=== PATIENT | male | born 1935 | race Caucasian/White ===

== ENCOUNTER 2017-03-24 09:23 | Inpatient (IN) | payer MEDICARE, OTHER ==
[~2017-03-24] VITALS: Ht 180.3 cm; Wt 85.7 kg
[~2017-03-24 09:23] MED LIST: CEFTIN250 MG PO; CIPRO500 MG OR; CIPROFLOXACIN250 MG OR; DARVOCET-N 100100 MG OR; FLULAVAL IM; LYRICA50 MG PO
[2017-03-24] MEDS ORDERED: NAMENDA10 MG PO (09:36)
--- NOTE | 2017-03-24 09:36 | NUR ---
PT BROUGHT IN FROM TRUCK IN DRIVEWAY PER W/C TO ROOM
--- NOTE | 2017-03-24 09:45 | NUR ---
PT REPORTS LEFT HIP PAIN AFTER TRIP AND FALL LUMBER STICKER. PT HAS DECREASE ROM TO LLE. BILATERAL PEDAL PULSE EQUAL AND STRONG. PT UNABLE TO FLEX LEFT LE, NO SHORTENING NOTED. DENIES ANY LOC, HEAD OR NECK PAIN. A&O X 3. PT AWARE OF PLAN OF CARE AND WAIT TIME. CALL CORONADO WITHIN REACH, WILL CONTINUE TO MONITOR.
[2017-03-24 09:54] LABS: HEMATOCRIT 44.4 % (39.0-50.0); HEMOGLOBIN 15.3 g/dl (14.0-18.0); IMMATURE GRANULOCYTES 0.5 % (0.0-1.0); MEAN CELL VOLUME 89.7 fL CALC (80.0-100.0); MEAN CORPUSCULAR HGB 30.9 pG CALC (26.0-32.0); MEAN CORPUSCULAR HGB CONC 34.5 g/L CALC (32.0-36.0); NEUT# 2.74 thou/uL (1.82-7.42); RED BLOOD COUNT 4.95 mill/uL (4.70-6.10); RED CELL DISTRI WIDTH 12.3 % (11.5-15.5)
--- NOTE | 2017-03-24 10:00 | NUR ---
PT PLACED ON 2 L NC FOR 89% SAO2 SAT. PT REPORTS O2 SAT IS NORMALLY LOW, NO 02 AT HOME.
[2017-03-24 10:03] LABS: ALBUMIN 4.1 g/dL (3.2-5.0); ALKALINE PHOSPHATASE 122 u/l (38-126); ANION GAP 16 (6-22 (CALC)); BILIRUBIN, TOTAL 0.6 mg/dL (0.0-1.4); BUN 10 mg/dL (8-23); BUN/CREATININE RATIO 14 (12-20 (CALC)); CALCIUM 9.7 mg/dL (8.4-10.2); CARBON DIOXIDE 25 mmol/l (22-30); CHLORIDE 105 mmol/l (95-108); CREATININE 0.7 mg/dL (0.7-1.3); GFR > 60 ML/MIN (>=60 (CALC)); GFR FOR AFR.AMER. > 60 ML/MIN (>=60 (CALC)); GLUCOSE 157 mg/dL (82-115); POTASSIUM 4.3 mmol/l (3.5-5.1); SGOT/AST 32 u/l (19-48); SGPT/ALT 37 u/l (11-66); SODIUM 141 mmol/l (137-146); TOTAL PROTEIN 6.7 g/dL (6.3-8.2)
--- NOTE | 2017-03-24 10:30 | NUR ---
MD AT BEDSIDE TO DISCUSS RESUTLS AND PLAN OF ADMISSION.
--- NOTE | 2017-03-24 10:56 | NUR ---
REPORT CALLED TO SUSANA SANON.
--- NOTE | 2017-03-24 11:05 | NUR ---
Admission Note Report Given to: SBAR PRINTED TO FLOOR Transported by: Wheelchair X Stretcher Transported with: X Nurse Transporter X Patent IV O2 X Pbx Repairer
[2017-03-24 11:10] VITALS: BP 153/73
--- NOTE | 2017-03-24 11:10 | NUR ---
PT ADMITTED TO ICU BED 8 MED SURG OVERFLOW, PT MOD ASSIST TRANSFER, PREFERRED TO MOVE HIMSELF WITH OUR ASSIST RELATED TO PAIN, TOLERATED MOVE WELL, ADMITTING DX LEFT HIP FX, ADMISSION ASSESSMENT COMPLETED SEE INTERVENTIONS, SKIN WARM DRY AND INTACT LEFT LEFG EXTERNALLY ROTATED AND SLIGHTLY SHORTER THAN R, PPPB AND STRONG WITH NO EDEMA NOTED, TOES WARM WITH GOOD CAP REFILL BILATERALLY, LUNGS ARE CLEAR PT HAS HISTORY OF COPD STATES A PULSE OX OF 90-93% ON ROOM AIR IS HIS "NORM", DENIES WEARING O2 AT HOME, ABD SOFT BS ACTIVE, COMPLAINS OF MILD NAUSEA NOW RELATED TO PAIN AND MEDICATION ADMINISTERED, LAST BM 03/23/17 PER PT, ORIENTED TO ROOM AND UNIT, COMFORT MEASURES PROVIDED, CALL CORONADO WITHIN REACH
--- NOTE | 2017-03-24 11:30 | NUR ---
AT BEDSIDE, DISCUSSED PLAN OF CARE INCLUDING POTENTIAL SURGERY PAIN CONTROL, DIET AND MEDICATIONS, ALL QUESTIONS ANSWERED, CALL CORONADO WITHIN REACH
--- NOTE | 2017-03-24 12:08 | NUR ---
MEDICATED FOR PAIN AND NAUSEA, SET UP ASSIST PROVIDED FOR AFTERNOON MEAL, CALL CORONADO WITHIN REACH, WILL CONTINUE TO MONITOR.
--- NOTE | 2017-03-24 13:00 | NUR ---
TOLERATED AFTERNOON MEAL WELL, STATES PAIN AND NAUSEA CONTROLLED AT THIS TIME, REPOSITIONS SELF FOR COMFORT. WILL CONTINUE TO MONITOR.
--- NOTE | 2017-03-24 13:57 | NUR ---
R.T. AT BEDSIDE FOR EKG AND ABG ORDERED, PT TOLERATED W/O INCIDENT, CALL CORONADO WITHIN REACH
--- NOTE | 2017-03-24 14:06 | NUR ---
O2 PLACED AT 2L VIA NC, BASED ON ABG RESULTS.
--- NOTE | 2017-03-24 14:55 | NUR ---
RESTING INBED, CALL IVONNE GOLDEN, OFFERS NO NEW COMPLAINTS,
--- NOTE | 2017-03-24 15:18 | NUR ---
PT MEDICATED FRO COMPLAINTS OF PAIN, PER PT IT'S NOT HOORIBLE YET BUT I WANTED TO TAKE SOMETHING BEFORE IT IS, COMFORT MEASURES PROVIDED, WILL CONTINUE TO MONITOR.
[2017-03-24 16:00] VITALS: BP 107/63
--- NOTE | 2017-03-24 17:29 | NUR ---
SET UP ASSIST PROVIDED FOR PM MEAL, BLANKET PROVIDED REQUESTED, PT REPOSITIONED SELF FOR COMFORT, CALL CORONADO WITHIN REACH
--- NOTE | 2017-03-24 17:42 | NUR ---
IN TO SEE PATIENT AT THIS TIME.
[2017-03-24 19:00] VITALS: BP 117/62
--- NOTE | 2017-03-24 19:00 | NUR ---
awake. denies acute hip pain. o2 cont per nc. lt foot outwardly rotated. po fluids taken well. voids per urinal. fall precautions cont.
--- NOTE | 2017-03-24 19:43 | NUR ---
percocet 5/325mg po given per request for pain.
--- NOTE | 2017-03-24 20:30 | NUR ---
no further c/oain voiced.
--- NOTE | 2017-03-24 23:30 | NUR ---
c/o lt hip pain. percocet 5/325mg po given.
[2017-03-25] VITALS (9 sets, daily range): BP systolic 96–136; BP diastolic 55–78
--- NOTE | 2017-03-25 00:01 | NUR ---
no further c/o voiced.
--- NOTE | 2017-03-25 03:00 | NUR ---
awake. denies pain. has voided lg amts this shift.
--- NOTE | 2017-03-25 04:00 | NUR ---
lab here. blood drawn.
[2017-03-25 04:30] LABS: HEMATOCRIT 38.3 % (39.0-50.0); HEMOGLOBIN 13.4 g/dl (14.0-18.0); IMMATURE GRANULOCYTES 0.4 % (0.0-1.0); MEAN CELL VOLUME 88.9 fL CALC (80.0-100.0); MEAN CORPUSCULAR HGB 31.1 pG CALC (26.0-32.0); NEUT# 4.31 thou/uL (1.82-7.42); RED BLOOD COUNT 4.31 mill/uL (4.70-6.10); RED CELL DISTRI WIDTH 11.9 % (11.5-15.5)
--- NOTE | 2017-03-25 04:30 | NUR ---
rt here. ekg obtained.
[2017-03-25 04:42] LABS: ALBUMIN 3.3 g/dL (3.2-5.0); ALKALINE PHOSPHATASE 93 u/l (38-126); ANION GAP 13 (6-22 (CALC)); BILIRUBIN, TOTAL 0.6 mg/dL (0.0-1.4); BUN 10 mg/dL (8-23); BUN/CREATININE RATIO 13 (12-20 (CALC)); CALCIUM 9.2 mg/dL (8.4-10.2); CARBON DIOXIDE 27 mmol/l (22-30); CHLORIDE 103 mmol/l (95-108); CREATININE 0.8 mg/dL (0.7-1.3); GFR > 60 ML/MIN (>=60 (CALC)); GFR FOR AFR.AMER. > 60 ML/MIN (>=60 (CALC)); GLUCOSE 160 mg/dL (82-115); POTASSIUM 4.1 mmol/l (3.5-5.1); SGOT/AST 21 u/l (19-48); SGPT/ALT 31 u/l (11-66); SODIUM 140 mmol/l (137-146); TOTAL PROTEIN 5.6 g/dL (6.3-8.2)
--- NOTE | 2017-03-25 06:15 | NUR ---
percocet 5/325mg po given for c/o pain.
--- NOTE | 2017-03-25 06:55 | NUR ---
BETO FROM OR DEPARTMENT ON PHONE AT THIS TIME. PER GRAZYNA BLANCO, PT WILL BE NPO AFTER BREAKFAST AND PROCEDURE WILL BE APPROXIMATELY 1800. BETO STATES "WE WILL MORE THAN LIKELY GET A VERBAL CONSENT FROM DR. TORRES" WILL UPDATE PT.
--- NOTE | 2017-03-25 12:30 | NUR ---
VISITOR AT BS. DENIES NEEDS OR CONCERNS. CALL LIGHT WITHIN REACH.
--- NOTE | 2017-03-25 17:05 | NUR ---
OR ON UNIT AT THIS TIME TO DIETARY SERVICE AIDE PT FOR PROCEDURE. PT STABLE AT TIME OF DEPARTURE.
--- NOTE | 2017-03-25 21:45 | NUR ---
PATIENT ARRIVED ON FLOOR VIA BED WITH OR STAFF IN ATTENDANCE. PATIENT IS AROUSABLE TO VOICE. O2 VIA NASAL CANNULA IN PLACE AT 2LPM. O2 SAT 94-95%. PATIENT WITH IV SITE TO LEFT AC-SITE APPEARS HEALTHY WITH IVF LR PATENT AND INFUSING AT 100CC/HR. PATIENT WITH DRESSING TO LEFT HIP CDI AT THIS TIME-ICE PACK IN PLACE AT THIS TIME FOR COMFORT. ABD PILLOW IN PLACE BETWEEN LEGS WITH SCD'S ORDERED. CALL LIGHT IN REACH. WILL CONT TO MONITOR.
--- NOTE | 2017-03-25 22:35 | NUR ---
PATIENT TAKING PO ICE CHIPS AND TOLERATING WELL. C/O POST-OP PAIN TO LEFT HIP. MEDICATED WITH DILAUDID 1MG IVP FOR 7/10 PAIN SCALE. CALL LIGHT IN REACH. WILL CONT TO MONITOR.
--- NOTE | 2017-03-26 00:30 | NUR ---
PATIENT IS RESTLESS AND ATTEMPTING TO REMOVE THE ABD PILLOW-ATTEMPTED TO EDUCATE PATIENT REGUARDING NEED TO LEAVE ABD PILLOW IN PLACE FOR PROPER HEALING-NOT ABLE TO EDUCATE AT THIS TIME. ABD REPLACED IN BETWEEN LEGS. CONT TO TAKE ICE CHIPS. O2 REMAINS IN PLACE. CLEOCIN INFUSING ORDERED. CALL LIGHT IN REACH. WILL CONT TO MONITOR.
--- NOTE | 2017-03-26 02:00 | NUR ---
PATIENT C/O POST-OP PAIN TO LEFT HIP-7/10 ON PAIN SCALE. MEDICATED WITH DILAUDID 1MG IVP FOR PAIN. CONT TO TAKE PO ICE CHIPS. ABD PILLOW BETWEEN LEGS. CALL LIGHT IN REACH. WILL CONT TO MONITOR.
[2017-03-26 05:17] VITALS: BP 101/62
[2017-03-26 06:37] LABS: HEMATOCRIT 35.6 % (39.0-50.0); HEMOGLOBIN 12.1 g/dl (14.0-18.0)
--- NOTE | 2017-03-26 06:41 | NUR ---
BLADDER SCAN FOR 856-#[address] [facility] BUNDY CATH INSERTED WITHOUT ANY DIFFICULTY-DRAINING KALYAN URINE. PATIENT MEDICATED WITH DILAUDID 1MG IVP FOR PAIN SCALE 7/10. IV SITE TO LEFT AC PATENT WITH LR AT 100CC/HR. SITE APPEARS HEALTHY. CONT TO TAKE ICE CHIPS AND H20 WITHOUT ANY DIFFICULTY, USING IS INSTRUCTED-TOLERATED WELL. ENCOURAGED USE QIH WHILE AWAKE. ABD PILLOW REMAINS IN PLACE. SAFETY PRECAUTIONS REINFORCED. CALL LIGHT IN REACH. WILL CONT TO MONITOR.
--- NOTE | 2017-03-26 07:00 | NUR ---
SHIFT CHANGE REPORT FROM CHARY LÓPEZ SLEEPING IN SUPINE POSITION, BREATHING EVEN AND NON-LABORED ON O2 @ 2L VIA NC, IVF INFUSING, ABDUCTOR WEDGE IN PLACE LEGS, SCD ON PLACE, CALL CORONADO IN REACH.
[2017-03-26 08:46] LABS: ANION GAP 12 (6-22 (CALC)); BUN 12 mg/dL (8-23); BUN/CREATININE RATIO 17 (12-20 (CALC)); CALCIUM 8.8 mg/dL (8.4-10.2); CARBON DIOXIDE 27 mmol/l (22-30); CHLORIDE 105 mmol/l (95-108); CREATININE 0.7 mg/dL (0.7-1.3); GFR > 60 ML/MIN (>=60 (CALC)); GFR FOR AFR.AMER. > 60 ML/MIN (>=60 (CALC)); GLUCOSE 158 mg/dL (82-115); POTASSIUM 4.4 mmol/l (3.5-5.1); SODIUM 140 mmol/l (137-146)
[2017-03-26 08:49] VITALS: BP 94/58
[2017-03-26 08:59] LABS: HEMATOCRIT 35.8 % (39.0-50.0); HEMOGLOBIN 12.1 g/dl (14.0-18.0); IMMATURE GRANULOCYTES 0.3 % (0.0-1.0); MEAN CELL VOLUME 90.2 fL CALC (80.0-100.0); MEAN CORPUSCULAR HGB 30.5 pG CALC (26.0-32.0); MEAN CORPUSCULAR HGB CONC 33.8 g/L CALC (32.0-36.0); NEUT# 5.69 thou/uL (1.82-7.42); RED BLOOD COUNT 3.97 mill/uL (4.70-6.10); RED CELL DISTRI WIDTH 12.2 % (11.5-15.5)
--- NOTE | 2017-03-26 10:45 | NUR ---
PHYSICAL THERAPISTS HERE AT THIS TIME TO EVAL AND TREAT PT, WILL CONTINUE TO MONITOR.
[2017-03-26 11:22] VITALS: BP 87/53
--- NOTE | 2017-03-26 13:51 | NUR ---
PM TX - PT WAS SEEN RESTING IN THE BED. BED MOBILITY WITH MODIFIED INDEPENDENCE. ABLE TO SCOOT AND SLIDE TO THE EDGE OF BED WHILE PULLING HIMSELF UP ON THE BED RAILS. HE WAS ABLE TO INDEPENDENTLY PUT HIS LEGS DOWN OFF THE BED TO ASSUME SHORT SITTING POSITION. VERBAL CUES WERE GIVEN ALTHROUGHOUT. SIT TO STAND WITH MIN A AND RW. PT'S LEGS WERE STILL IN CONSTANT FLEXED POSITION, BUT WOULD CORRECT IF GIVEN INSTRUCTIONS TO. VOICED SLIGHT DIZZINESS HE STARTED LEANING BACKWARD TOWARDS THE BED. INSTRUCTED THE PT TO SIDE STEP IN PREPARATION TO SIT AND LAY BACK IN THE BED. PT SIDE STEPPED W/ RW AND CGA WITH DIFFICULTY LIFTING FEET OFF THE FLOOR. ONCE SEATED ON THE BED, PT WAS ABLE LIFT HIS LEGS UP ON THE BED, USED B UE TO HOLD ONTO THE BED RAILS TO REPOSITION HIMSELF TO SUPINE. SPO2 DESATURATED TO 90% FROM 93% WITH O2 VIA NASAL CANNULA. INSTRUCTED PT TO DO DEEP BREATHS X 5. SPO2 RETURNED TO 96%. LEFT PT WITH CALL WITHIN REACH. FALL AND HIP PRECAUTIONS REINFORCED. FEET OFF THE FLOOR.
--- NOTE | 2017-03-26 14:42 | NUR ---
HAS NOT URINATED SINCE THIS AM, BLADDER SCANNED = 285 ML, MESSAGE LEFT FOR DR JAIME TO CALL BACK FOR ORDERS.
[2017-03-26 15:00] VITALS: BP 93/57
--- NOTE | 2017-03-26 15:03 | NUR ---
DR JAIME RETURNED CALL AND GAVE ORDERS.
[2017-03-26 17:54] LABS: URINE BILIRUBIN - DIPSTICK NEGATIVE (NEGATIVE); URINE BLOOD DIPSTICK TRACE-INTACT (NEGATIVE); URINE GLUCOSE - DIPSTICK NEGATIVE (NEGATIVE); URINE KETONE NEGATIVE (NEGATIVE); URINE LEUK ESTERASE NEGATIVE (NEGATIVE); URINE NITRITE - DIPSTICK NEGATIVE (Negative); URINE PROTEIN - DIPSTICK NEGATIVE (NEG-TRACE); URINE SPECIFIC GRAVITY >=1.030
[2017-03-26 17:55] LABS: URINE CLARITY CLEAR; URINE COLOR DK. YELLOW
[2017-03-26 18:45] VITALS: BP 99/53
--- NOTE | 2017-03-26 19:30 | NUR ---
PATIENT RESTING INBED AT THIS TIME WITH HOB ELEVATED AND O2 VIA NASAL CANNULA IN PLACE. PATIENT IS AWAKE ALERT AND ORIENTED AND HAS VISITOR AT BEDSIDE. BUNDY CATH PATENT AND DRAINING YELLOW URINE. IVF PATENT AND INFUSING VIA LEFT FOREARM SITE-NS AT 100CC/HR. ABD PILLOW IN PLEACE IN BETWEEN HIS LEGS. SCD'S IN PLACE. SAFETY PRECAUTIONS REINFORCED. CALL LIGHT IN REACH. WILL CONT TO MONITOR.
--- NOTE | 2017-03-26 21:30 | NUR ---
PATIENT MEDICATEWD FOR POST-OP PAIN WITH PERCOCET TABS 2 ORDERED. PATIENT IS USING IS INSTRUCTED EFFECTIVELY WITH SUPERVISION. DRESSING TO LEFT HIP IS CDI AT THIS TIME. SAFETY PRECAUTIONS REINFORCED. CALL LIGHT IN REACH. WILL CONT TO MONITOR.
[2017-03-27] VITALS (14 sets, daily range): BP systolic 82–121; BP diastolic 49–67
--- NOTE | 2017-03-27 01:00 | NUR ---
PATIENT AWAKE AND DOING IS EXERCISES INSTRUCTED. IVF NS PATENT AND INFUSING VIA LEFT FOREARM SITE AT 100CC/HR. SITE APPEARS HEALTHY AT TH IS TIME. O2 VIA NASAL CANNULA AT 2LPM. BUNDY CATH PATENT AND DRAINING YELLOW URINE. ABD PILLOW IN PLACE BETWEEN LEGS. SCD'S IN PLACE. PT MEDICATED WITH DILAUDID 1MG IVP FOR COMFORT. USING ICE PACKS TO LEFT HIP FOR COMFORT. DRESSING TO LEFT HIP IS CDI AT THIS TIME. CALL LIGHT IN REACH. WILL CONT TO MONITOR.
--- NOTE | 2017-03-27 05:08 | NUR ---
PATIENT WITH TEMP OF 101.4. O2 SAT IN THE HIGH 80'-LOW 90. O2 VIA NASAL CANNULA INCREASED TO 3LPM. PATIENT MEDICATED WITH TYLENOL 650MG PO FOR TEMP. MEDICATED FOR PAIN WITH PERCOCET 1 TABLET. PATIENT USING IS INSTRUCTED. CALL LIGHT IN REACH. WILL CONT TO MONITOR.
--- NOTE | 2017-03-27 06:44 | NUR ---
TEMP 100.1-TAKING PO FLUIDS. O2 VIA NASAL CANNULA INPLACE AT 2.5 LPM AT THIS TIME. PATIENT WITH NON-PRODUCTIVE COUGH. CALL LIGHT IN REACH. WILL CONT TO MONITOR.
--- NOTE | 2017-03-27 07:00 | NUR ---
RECEIVED BEDSIDE REPORT FROM MARIBEL MEZA. RESTING IN SUPINE POSITION WITH EYES CLOSED, AWAKENS EASILY. ABDUCTOR PILLOW BETWEEN BILAT KNEES, SCD TO RIGHT LOWER EXTREMITY. #22 LFA INFUSING WITHOUT DIFFICULTY, SITE APPEARS HEALTHY. BUNDY PATENT, DRAINING KALYAN URINE TO GRAVITY, STRAP TO UPPER RIGHT LEG. DRESSING TO LEFT HIP CDI. DENIES PAIN OR DISCOMFORT. PLAN OF CARE DISCUSSED. SAFETY PRECAUTIONS REINFORCED. BED IN LOWEST POSITION WITH WHEELS LOCKED. CALL LIGHT WITHIN REACH. ENCOURAGED PT TO CALL FOR ANY NEEDS.
[2017-03-27 07:04] LABS: HEMATOCRIT 27.8 % (39.0-50.0); HEMOGLOBIN 9.6 g/dl (14.0-18.0)
--- NOTE | 2017-03-27 08:25 | NUR ---
DR JAIME IN WITH PT, NEW ORDERS RECEIVED.
--- NOTE | 2017-03-27 08:55 | NUR ---
TRANSFERRED TO STRETCHER WITH MAX ASSIST. TO RADIOLOGY IN STABLE CONDITION VIA STRETCHER ACCOMPANIED BY VELVET CHARLES.
--- NOTE | 2017-03-27 09:37 | NUR ---
Patient alert and oriented x3. Pupils reactive. No signs of edema. Strong radial pulses. Capillary refill <3. Patient heart rhythm and sounds are regular. Bowel sounds are hyperactive; patient reports last bowel movement 03/23/2017. IV site free of redness and edema. Patient states 'I have none' when asked about pain. Patient has strong pedal pulses, feet warm and appropriate color. Wedge in place, reminded patient of hip precautions. SCD in place on right leg. Patient has no needs or concerns at this time. SR x2, wheels are locked, call light within reach, bed in lowest postion. Will continue to monitor.
--- NOTE | 2017-03-27 09:39 | NUR ---
SEEN PT WITH SUPERVISOR GEAR REPAIR, STATES THAT PT JUST GOT BACK TO BED AFTER THEY GAVE HIM A BATH. PT PREFERRED TO BE SEEN THIS AFTERNOON. STATES THAT HE IS TIRED AND WANTS TO SLEEP AT THIS TIME.
--- NOTE | 2017-03-27 11:15 | NUR ---
PRBC'S FIRST UNIT INFUSING. PT INSTRUCTED TO NOTIFY NURSE IF ANY S/S TRANSFUSION REACTIONS. PT VERBALIZED UNDERSTANDING.
--- NOTE | 2017-03-27 14:46 | NUR ---
1ST UNIT PRBC'S COMPLETED. DENIES S/S TRANSFUSION REACTION. RESTING IN SEMI FOWLERS WITH EYES CLOSED, AWAKENS EASILY. RESPS EVEN AND UNLABORED ON O2 VIA NC. CALL LIGHT WIHTIN REACH. WILL CONTINUE TO MONITOR.
--- NOTE | 2017-03-27 15:32 | NUR ---
RESTING IN HIGH FOWLERS WATCHING TV. RESPS EVEN AND UNLABORED ON O2 VIA NC. ABDUCTOR PILLOW BETWEEN BILAT KNEES. SCD TO RIGHT LOWER EXTREMITY. #22 LFA INFUSING 2ND UNIT PRBC'S WITHOUT DIFFICULTY, SITE APPEARS HEALTHY. PT INSTRUCTED S/S TRANSFUSION REACTION. PT VERBALIZED UNDERSTANDING. CALL LIGHT WITHIN REACH. WILL CONTINUE TO MONITOR.
--- NOTE | 2017-03-27 17:20 | NUR ---
RESTING IN SEMI FOWLERS. RESPS EVEN AND UNLABORED ON O2 VIA NC. #22 LFA INFUSING PRBC'S WITHOUT DIFFICULTY, SITE APPEARS HEALTHY. DENIES PAIN OR DISCOMFORT. ABDUCTOR PILLOW BETWEEN BILAT KNEES. DR JAIME IN WITH PT, NEW ORDERS RECEIVED. CALL LIGHT WITHIN REACH. WILL CONTINUE TO MONITOR.
--- NOTE | 2017-03-27 19:00 | NUR ---
RECEIVED CHANGE OF SHIFT REPORT FROM SUSANA WILKINS. PATIENT LYING IN BED AND APPEARS NOT TO BE IN ANY APPARENT ACUTE DISTRESS OR DISCOMFORT. WILL CONTINUE TO MONITOR.
--- NOTE | 2017-03-28 | NUR ---
NO APPARENT ACUTE DISTRESS NOTED. MEDICATED [facility] TYLENOL 650 MG PO FOR TEMP 100.7. WILL CONTINUE TO MONITOR.
--- NOTE | 2017-03-28 04:00 | NUR ---
NO APPARENT ACUTE CHANGES NOTED IN PT'S CONDITION.
[2017-03-28 05:38] LABS: HEMATOCRIT 33.2 % (39.0-50.0); HEMOGLOBIN 11.5 g/dl (14.0-18.0); IMMATURE GRANULOCYTES 0.3 % (0.0-1.0); MEAN CELL VOLUME 91.2 fL CALC (80.0-100.0); MEAN CORPUSCULAR HGB 31.6 pG CALC (26.0-32.0); MEAN CORPUSCULAR HGB CONC 34.6 g/L CALC (32.0-36.0); NEUT# 4.12 thou/uL (1.82-7.42); RED BLOOD COUNT 3.64 mill/uL (4.70-6.10); RED CELL DISTRI WIDTH 12.5 % (11.5-15.5)
[2017-03-28 05:41] VITALS: BP 102/62
[2017-03-28 05:59] LABS: ALBUMIN 2.5 g/dL (3.2-5.0); ALKALINE PHOSPHATASE 90 u/l (38-126); ANION GAP 12 (6-22 (CALC)); BILIRUBIN, TOTAL 0.9 mg/dL (0.0-1.4); BUN 13 mg/dL (8-23); BUN/CREATININE RATIO 21 (12-20 (CALC)); CALCIUM 8.3 mg/dL (8.4-10.2); CARBON DIOXIDE 24 mmol/l (22-30); CHLORIDE 106 mmol/l (95-108); CREATININE 0.6 mg/dL (0.7-1.3); GFR > 60 ML/MIN (>=60 (CALC)); GFR FOR AFR.AMER. > 60 ML/MIN (>=60 (CALC)); GLUCOSE 103 mg/dL (82-115); SGOT/AST 32 u/l (19-48); SGPT/ALT 30 u/l (11-66); SODIUM 139 mmol/l (137-146); TOTAL PROTEIN 4.7 g/dL (6.3-8.2)
--- NOTE | 2017-03-28 07:00 | NUR ---
RECEIVED BEDSIDE REPORT FROM SUDHEER MEZA. RESTING IN SEMI FOWLERS WITH EYES CLOSED, AWAKENS EASILY. RESPS EVEN AND UNLABORED ON O2 VIA NC. BUNDY PATENT DRAINING KALYAN URINE TO GRAVITY, STRAP TO UPPER RIGHT LEG. SCD TO RIGHT LOWER LEG. #22 LFA INFUSING WITHOUT DIFFICULTY, SITE APPEARS HEALTHY. ABDUCTOR PILLOW BETWEEN BILAT KNEES. PLAN OF CARE DISCUSSED. SAFETY PRECAUTIONS REINFORCED. BED IN LOWEST POSITION WITH WHEELS LOCKED. CALL LIGHT IWHTIN REACH. ENCOURAGED PT TO CALL FOR ANY NEEDS.
[2017-03-28 07:34] VITALS: BP 122/69
--- NOTE | 2017-03-28 08:30 | NUR ---
DR JAIME IN WITH PT, NEW ORDERS RECEIVED.
--- NOTE | 2017-03-28 09:20 | NUR ---
PHYSICAL THERAPY IN WITH PT.
--- NOTE | 2017-03-28 09:51 | NUR ---
SEEN PT RESTING IN THE BED. STATES MILD DIZZINESS, HOWEVER, STATES THAT HE FEELS A LOT BETTER TODAY. SCOOTED OUT OF BED WHILE HOLDING ONTO THE RAILS. SUPINE TO SIT WITH MIN A AND VERBAL INSTRUCTIONS. SIT TO STAND WITH CGA AND RW. PT WAS ABLE TO AMBULATE FROM BED TO RECLINER ~6 SMALL STEPS AWAY WITH RW AND CGA. REINFORCED HIP PRECAUTIONS WHICH THE PT WAS DEMONSTRATING. STATES STIFFNESS OF L HIP, PAIN INTENSITY NOT STATED. PT SAT IN THE RECLINER WITH LEG REST IN ELEVATED POSITION, HIPS HIGHER THAN KNEES. REATTACHED THE ABDUCTION FOAM. SPO2 REMAINED ON 96% WITH O2 AT 2L VIA NASAL CANNULA. NO ADVERSE RXNS NOTED OR REPORTED AT THE END TX. PT STATES HE FEELS MORE COMFORTABLE SITTING. LEFT PT WITH CALL CORONADO IN HIS SIDE.
--- NOTE | 2017-03-28 12:20 | NUR ---
SITTING IN BEDSIDE RECLINER WITH BILAT FEET ELEVATED. ASSISTED PT TO STAND, BUNDY UNCLAMPED, 50ML URINE IN URINE BAG, ASSISTED TO LAY DOWN, BLADDER SCAN SHOWS 0 URINE IN BLADDER. TOLERATED WELL.
--- NOTE | 2017-03-28 13:31 | NUR ---
PT WAS SEEN SLEEPING IN BED. REFUSED TO COOPERATE WITH PHYSICAL THERAPY. STATES THAT HE WAS SO TIRED FROM WALKING FROM THE RECLINER AND HE JUST GOT BACK TO BED. ALSO STATES THAT PAIN ON L HIP IS PS10/10 WHEN HE PUTS WEIGHT ON IT.
--- NOTE | 2017-03-28 15:00 | NUR ---
PHONE CALL TO DR JAIME, NO NEW ORDERS.
[2017-03-28 16:05] VITALS: BP 120/70
--- NOTE | 2017-03-28 16:30 | NUR ---
MEDICATED WITH TYLENOL PO FOR TYMPANIC TEMP 100.3. PO FLUIDS OFFERED. CALL LIGHT WITHIN REACH.
--- NOTE | 2017-03-28 16:40 | NUR ---
Visited pt room for rounds. Pt said that he is feeling good today. Had surgery due to broken hip butis not currently taking any pain meds because does not have any pain. Not experiencing any side effects and has no other health issues. Did not have any questions or concerns regarding current meds or therapy.
[2017-03-28 20:32] VITALS: BP 183/67
[2017-03-28 20:33] VITALS: BP 118/69
--- NOTE | 2017-03-28 21:00 | NUR ---
PT RESTING IN BED IN SEMI FOWLERS POSITION;RESPIRATIONS EVEN AND UNLABORED ON 02 @3L VIA NC,PT IS NOT HOME DEPENDENT;PT VOICES NO COMPLAINTS OF PAIN AND IS RE-EDUCATED ON PAIN SCALE AND REPORTING;ASSESSMENT COMPLETED;I.S. AT BEDSIDE AND PT DEMONSTRATED USE,GOAL SET TO 3000;PT ENCOURAGED TO USE EVERY HOUR TEN TIMES;SCD PLACED BACK ON RIGHT LEG;#22G TO LEFT FOREARM FLUSHED AND PATENT;CLEAR LUNG SOUNDS NOTED;INCISION AREA TO LEFT HIP RESPIRATORY THERAPY INSTRUCTOR DERMABOND NOTED;ABDUCTOR PILLOW IN PLACE;CAP REFILL LESS THAN 3 SECONDS;BUNDY CATHETER PATENT HANGING TO GRAVITY DRAINING YELLOW/BLOOD TINGED URINE,LEG STRAP NOTED; PT VOICES NO COMPLAINTS OR CONCERNS;FALL PRECAUTIONS IN PLACE AND PT EDUCATED TO CALL FOR ASSISTANCE IF NEEDED;CALL LIGHT IN REACH;WILL CONTINUE TO MONITOR
--- NOTE | 2017-03-29 00:45 | NUR ---
PT APPEARS TO BE SLEEPING WITH EYES CLOSED IN SEMI FOWLERS POSITION;RESPIRATIONS EVEN AND UNLABORED ON 02 @ 3L;BUNDY CATHETER PATENT DRAINING YELLOW/BLOODY TINGED URINE;NO S/S OF DISTRESS NOTED;SCD AND ABDUCTOR PILLOW IN PLACE;FALL PRECAUTIONS NOTED WITH BED IN THE LOWEST POSITION;CALL LIGHT IN REACH;WILL CONTINUE TO MONITOR
--- NOTE | 2017-03-29 03:00 | NUR ---
PT OOB ON BEDSIDE COMMODE ATTEMPTING TO HAVE A BM;PT REQUESTS PRN MILK OF MAG;AFTER SEVERAL MINS PT TRANSFERRED TO RECLINER WITH 2 PERSON ASSIST AND ASSISTED DEVICE;WHILE AMBULATING WOUND NOTED TO RIGHT BUTTOCK;PHOTOGRAPH OBTAINED AND DUODERM DRESSING APPLIED;WILL CONTINUE TO MONITOR
[2017-03-29 04:00] VITALS: BP 107/62
--- NOTE | 2017-03-29 05:10 | NUR ---
PT APPEARS TO BE SLEEPING IN RECLINER WITH EYES CLOSED;RESPIRATIONS EVEN AND UNLABORED ON 02 @3L;NO S/S OF DISTRESS NOTED;BUNDY CATHETER PATENT HANGING TO GRAVITY;FALL PRECAUTIONS IN PLACE WITH CALL LIGHT IN REACH;WILL CONTINUE TO MONITOR
[2017-03-29 06:38] LABS: HEMATOCRIT 35.7 % (39.0-50.0); HEMOGLOBIN 12.2 g/dl (14.0-18.0); IMMATURE GRANULOCYTES 0.3 % (0.0-1.0); MEAN CELL VOLUME 91.5 fL CALC (80.0-100.0); MEAN CORPUSCULAR HGB 31.3 pG CALC (26.0-32.0); MEAN CORPUSCULAR HGB CONC 34.2 g/L CALC (32.0-36.0); NEUT# 5.28 thou/uL (1.82-7.42); RED BLOOD COUNT 3.9 mill/uL (4.70-6.10); RED CELL DISTRI WIDTH 12.7 % (11.5-15.5)
[2017-03-29 06:54] LABS: ANION GAP 13 (6-22 (CALC)); BUN 15 mg/dL (8-23); BUN/CREATININE RATIO 23 (12-20 (CALC)); CALCIUM 8.8 mg/dL (8.4-10.2); CARBON DIOXIDE 26 mmol/l (22-30); CHLORIDE 104 mmol/l (95-108); CREATININE 0.7 mg/dL (0.7-1.3); GFR > 60 ML/MIN (>=60 (CALC)); GFR FOR AFR.AMER. > 60 ML/MIN (>=60 (CALC)); GLUCOSE 130 mg/dL (82-115); POTASSIUM 4.3 mmol/l (3.5-5.1); SODIUM 139 mmol/l (137-146)
[2017-03-29 08:14] VITALS: BP 105/55
--- NOTE | 2017-03-29 08:15 | NUR ---
PT UP IN RECLINER; DENIES PAIN; O2 3L VIA NC; DR. JAIME IN TO SEE PT; PLAN OF CARE DISCUSSED; CALL CORONADO WITHIN REACH; WILL CONTINUE TO MONITOR.
--- NOTE | 2017-03-29 10:43 | NUR ---
PT BUNDY CATHETER 16 FR/10CC REMOVED ORDERED WITHOUT DIFFICULTY. TIP INTACT, NO BLEEDING OR DRAINAGE. 75CC OF CLEAR BRIGHT ORANGE URINE IN BUNDY BAG. URINAL PLACED AT BED SIDE AND PO FLUIDS ENCOURAGED. WILL CONTINUE TO MONITOR FOR URINE OUTPUT.
--- NOTE | 2017-03-29 12:00 | NUR ---
PT RESTING WITH EYES CLOSED; AROUSED EASILY TO VERBAL STIMULI; REFUSE LUNCH; DENIES PAIN; CALL CORONADO WITHIN REACH; WILL CONTINUE TO MONITOR.
[2017-03-29 12:38] VITALS: BP 110/62
[2017-03-29 15:10] VITALS: BP 114/69
--- NOTE | 2017-03-29 15:45 | NUR ---
PHYSICAL THERAPY IN WITH PT; PT AMBULATORY IN [place] WITH USE OF WALKER AND STAND BY ASSIST; NO COMPLAINTS VOICED; CALL CORONADO WITHIN REACH; WILL CONTINUE TO MONITOR.
--- NOTE | 2017-03-29 17:03 | NUR ---
PATIENT SEEN FOR AM GT TX THIS MORNING. HE WAS ALREADY UP IN RECLINER AND WILLING TO AMB, BUT DID HAVE C/O PAIN WITH AMB. SIT TO STAND WTIH MOD A FOR SAFETY AND V.C.'S FOR PUSHING DOWN ON ARMS INSTEAD OF PULLING UP. PATIENT AMB WITH CUEING FOR SEQUENCE, INCREASED AXIAL EXT AND VERBAL REMINDER FOR HIP PRECAUTIONS. PATIENT AMB 10 FEET AROUND BED WITH MIN A FOR SAFETY.
--- NOTE | 2017-03-29 17:40 | NUR ---
DR. JAIME IN TO SEE PT; PLAN OF CARE DISCUSSED
--- NOTE | 2017-03-29 17:51 | NUR ---
PATIENT ASLEEP, BUT WOKE FOR P.M. TX OF GT X 2. 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 SIT TO STAND WITH V.C.'S FOR HAND PLACEMENT AND PROPER UE WB'G ON WALKER. AMB WBAT L LE WITH WALKER AND V.C.'S FOR SEQUENCE. INSTRUCTED TO TURN TO RIGHT TO AVOID INT ROT OF LEFT HIP. AMB 35 FEET WITH ONE STANDING REST AND STEP TO GATI PATTERN WITH CGA. STAND TO SIT WITH V.C.'S. SIT TO SUPINE WITH MOD A FOR LE'S. ABLE TO SCOOT IN BED WITH HANDRAILS AND V.C.'S. HIP ABD PAD REPLACED, CALL CORONADO AND TRAY TABLE IN REACH. PATIENT EXPECTED TO BE D/C'D TO REHAB TOMORROW AM.
--- NOTE | 2017-03-29 18:22 | NUR ---
PT GIVEN SSE ORDERED; AWAITING RESULTS
[2017-03-29 19:00] VITALS: BP 108/70
--- NOTE | 2017-03-29 19:45 | NUR ---
PT WOKE FOR ASSESSMEMT. RESP EVEN AND UNLABORED WITH O2 IN PLACE. LUNGS CLEAR, DIMINISHED IN BASES. NO DISTRESS NOTED. ABD SOFT, ACTIVE BOWEL SOUNDS. LEFT HIP OPEN TO AIR, REDNESS NOTED. NO DRAINAGE NOTED. IV LFA PATENT, FLUSHED WITHOUT DIFFICULTY. LEFT ANKLE TRACE EDEMA NOTED. PT REPOSITIONED FOR COMFORT. PT DENIES ANY PAIN OR DISCOMFORT. SAFETY PRECAUTIONS REINFORCED. FREQUENT ROUNDS MADE. CALL LIGHT WITHIN REACH.
--- NOTE | 2017-03-30 00:15 | NUR ---
PT APPEARS TO BE SLEEPING. RESP EVEN AND UNLABORED WITH O2 IN PLACE. NO DISTRESS NOTED. CALL LIGHT WITHIN REACH.
[2017-03-30 03:39] VITALS: BP 99/63
--- NOTE | 2017-03-30 04:01 | NUR ---
PT RESTING IN BED WATCHING TV. PT DENIES ANY PAIN OR DISCOMFORT. RESP EVEN AND UNLABORED WITH O2 IN PLACE. NO DISTRESS NOTED. ASSESSMENT UNCHANGED. CALL LIGHT WITHIN REACH.
[2017-03-30 06:38] LABS: HEMATOCRIT 33.6 % (39.0-50.0); HEMOGLOBIN 11.5 g/dl (14.0-18.0); IMMATURE GRANULOCYTES 0.4 % (0.0-1.0); MEAN CELL VOLUME 91.3 fL CALC (80.0-100.0); MEAN CORPUSCULAR HGB 31.3 pG CALC (26.0-32.0); MEAN CORPUSCULAR HGB CONC 34.2 g/L CALC (32.0-36.0); NEUT# 3.22 thou/uL (1.82-7.42); RED BLOOD COUNT 3.68 mill/uL (4.70-6.10); RED CELL DISTRI WIDTH 12.8 % (11.5-15.5)
[2017-03-30 06:59] LABS: ANION GAP 12 (6-22 (CALC)); BUN 14 mg/dL (8-23); BUN/CREATININE RATIO 23 (12-20 (CALC)); CALCIUM 8.6 mg/dL (8.4-10.2); CARBON DIOXIDE 26 mmol/l (22-30); CHLORIDE 104 mmol/l (95-108); CREATININE 0.6 mg/dL (0.7-1.3); GFR > 60 ML/MIN (>=60 (CALC)); GFR FOR AFR.AMER. > 60 ML/MIN (>=60 (CALC)); GLUCOSE 103 mg/dL (82-115); SODIUM 139 mmol/l (137-146)
--- NOTE | 2017-03-30 08:00 | NUR ---
PT TOLERATING BREAKFAST WELL; NO COMPLAINTS OF PAIN OR DISCOMFORT VOICED; CALL CORONADO WITHIN REACH; WILL CONTINUE TO MONITOR.
[2017-03-30 08:06] VITALS: BP 104/52
[2017-03-30] MEDS ORDERED: OXYCODO-APAP1 TA2 PO (08:53)
[2017-03-30] MEDS ORDERED: SURFAK240 MG/CAP PO (08:53)
--- NOTE | 2017-03-30 09:15 | NUR ---
DR. JAIME IN TO SEE PT; PLAN OF CARE DISCUSSED
--- NOTE | 2017-03-30 10:00 | NUR ---
PT ASSISTED TO RECLINER WITH MODERATE ASSIST AND USE OF WALKER; NO COMPLAINTS VOICED; CALL CORONADO WITHIN REACH; WILL CONTINUE TO MONITOR.
--- NOTE | 2017-03-30 13:16 | NUR ---
PT UP IN RECLINER; REFUSE LUNCH; DENIES PAIN; AWAITING TO BE NUCLEAR FUEL ENRICHMENT TECHNICIAN FOR TX TO [facility]; CALL CORONADO WITHIN REACH; WILL CONTINUE TO MONITOR.
--- NOTE | 2017-03-30 14:00 | NUR ---
REPORT CALLED TO ZABRINA MONTOYA [facility]
--- NOTE | 2017-03-30 15:11 | NUR ---
Discharge instructions given. Patient verbalizes understanding of same. Discharged in stable condition via Wheelchair to [facility] with *Other. All belongings sent with pt.
== END 2017-03-30 15:06 | DRG 470 ==
LOC: ED 09:23 → ED-I 10:05 → ED 10:05 → ED-I 10:25 → ICU 10:26 → ED 10:26 → MS2 17:50 → ICU 17:50 → MS2 03-25 19:27
PROVIDERS: Emergency Medicine; Orthopaedic Surgery; ADMIT Internal Medicine Geriatric Medicine; ATTEND Internal Medicine Geriatric Medicine
PROC: 0SRS0JA Replacement of Left Hip Joint, Femoral Surface with Synthetic Substitute, Uncemented, Open Approach (ICD-10-PCS; principal; 2017-03-25)
PROC: 0T9B70Z Drainage of Bladder with Drainage Device, Via Natural or Artificial Opening (ICD-10-PCS; 2017-03-26)
PROC: 30233N1 Transfusion of Nonautologous Red Blood Cells into Peripheral Vein, Percutaneous Approach (ICD-10-PCS; 2017-03-27)
PROC: 30233N1 Transfusion of Nonautologous Red Blood Cells into Peripheral Vein, Percutaneous Approach (ICD-10-PCS; 2017-03-27)
DX: S72.042A Displaced fracture of base of neck of left femur, initial encounter for closed fracture (principal); I95.9 Hypotension, unspecified; F03.90 Unspecified dementia, unspecified severity, without behavioral disturbance, psychotic disturbance, mood disturbance, and anxiety; N13.9 Obstructive and reflux uropathy, unspecified; D62 Acute posthemorrhagic anemia; I10 Essential (primary) hypertension; I25.10 Atherosclerotic heart disease of native coronary artery without angina pectoris; M19.90 Unspecified osteoarthritis, unspecified site; H91.90 Unspecified hearing loss, unspecified ear; R09.02 Hypoxemia; R33.9 Retention of urine, unspecified; K59.03 Drug induced constipation; N32.89 Other specified disorders of bladder; T50.995A Adverse effect of other drugs, medicaments and biological substances, initial encounter; W01.0XXA Fall on same level from slipping, tripping and stumbling without subsequent striking against object, initial encounter; Y92.524 Gas station as the place of occurrence of the external cause; Z87.891 Personal history of nicotine dependence
CPT/HCPCS: J2710; P9016

== ENCOUNTER 2017-07-28 22:51 | Emergency (ER) | payer MEDICARE, OTHER ==
[~2017-07-28] VITALS: Ht 180.3 cm; Wt 81.6 kg
[~2017-07-28 22:51] MED LIST changes: +NAMENDA10 MG PO; +OXYCODO-APAP1 TA2 PO; +SURFAK240 MG/CAP PO
[2017-07-29 00:30] LABS: IMMATURE GRANULOCYTES 0.3 % (0.0-1.0); MEAN CELL VOLUME 87.4 fL CALC (80.0-100.0); MEAN CORPUSCULAR HGB 28.3 pG CALC (26.0-32.0); MEAN CORPUSCULAR HGB CONC 32.4 g/L CALC (32.0-36.0); NEUT# 4.06 thou/uL (1.82-7.42); RED BLOOD COUNT 5.06 mill/uL (4.70-6.10); RED CELL DISTRI WIDTH 13.9 % (11.5-15.5)
[2017-07-29 00:32] LABS: HEMOGLOBIN 14.3 g/dl (14.0-18.0)
[2017-07-29 00:33] LABS: HEMATOCRIT 44.2 % (39.0-50.0)
[2017-07-29 00:36] LABS: URINE BILIRUBIN - DIPSTICK NEGATIVE (NEGATIVE); URINE BLOOD DIPSTICK TRACE-INTACT (NEGATIVE); URINE COLOR YELLOW; URINE GLUCOSE - DIPSTICK NEGATIVE (NEGATIVE); URINE KETONE NEGATIVE (NEGATIVE); URINE NITRITE - DIPSTICK NEGATIVE (Negative); URINE PROTEIN - DIPSTICK NEGATIVE (NEG-TRACE); URINE UROBILINOGEN - DIPSTICK 0.2 E.U./dL (0.2)
[2017-07-29 00:37] LABS: URINE CLARITY TURBID; URINE LEUK ESTERASE LARGE (NEGATIVE)
[2017-07-29 00:40] LABS: URINE BACTERIA FEW hpf; URINE MUCUS FEW hpf (NONE-FEW); URINE SQUAMOUS EPITHELIAL CELL FEW EPI/hpf (0-FEW); URINE WBC 20-50 WBC/hpf (0-5)
[2017-07-29 00:51] LABS: ALBUMIN 3.6 g/dL (3.2-5.0); ALKALINE PHOSPHATASE 144 u/l (38-126); ANION GAP 15 (6-22 (CALC)); BILIRUBIN, TOTAL 0.3 mg/dL (0.0-1.4); BUN 13 mg/dL (8-23); BUN/CREATININE RATIO 21 (12-20 (CALC)); CARBON DIOXIDE 27 mmol/l (22-30); CHLORIDE 104 mmol/l (95-108); CREATININE 0.6 mg/dL (0.7-1.3); GFR > 60 ML/MIN (>=60 (CALC)); GFR FOR AFR.AMER. > 60 ML/MIN (>=60 (CALC)); POTASSIUM 4.5 mmol/l (3.5-5.1); SGOT/AST 25 u/l (19-48); SGPT/ALT 38 u/l (11-66); SODIUM 142 mmol/l (137-146); TOTAL PROTEIN 6.9 g/dL (6.3-8.2)
[2017-07-29] MEDS ORDERED: EQ MAGNESIUM CI1 SOL PO (01:13)
[2017-07-29] MEDS ORDERED: TAMSULOSIN0.4 MG PO (01:37)
[2017-07-29 01:48] VITALS: BP 140/84
== END 2017-07-29 01:48 | disposition home or self-care (01) ==
LOC: ED 22:51
PROVIDERS: Family Medicine
DX: K59.00 Constipation, unspecified (principal); R10.32 Left lower quadrant pain; R35.0 Frequency of micturition; R39.15 Urgency of urination; B96.5 Pseudomonas (aeruginosa) (mallei) (pseudomallei) as the cause of diseases classified elsewhere

== ENCOUNTER 2019-04-17 | Emergency (ER) | payer MEDICARE, OTHER ==
[~2019-04-17] MED LIST changes: +EQ MAGNESIUM CI1 SOL PO; +TAMSULOSIN0.4 MG PO
[2019-04-17] MEDS ORDERED: BAYER ASPIRIN325 MG PO (11:53)
[2019-04-17] MEDS ORDERED: KLOR-CON 1010 MEQ PO (13:15)
== END 2019-04-17 15:55 | disposition home or self-care (01) ==
DX: R07.81 Pleurodynia (principal); G30.9 Alzheimer's disease, unspecified; F02.80 Dementia in other diseases classified elsewhere, unspecified severity, without behavioral disturbance, psychotic disturbance, mood disturbance, and anxiety; W01.0XXA Fall on same level from slipping, tripping and stumbling without subsequent striking against object, initial encounter; Y92.009 Unspecified place in unspecified non-institutional (private) residence as the place of occurrence of the external cause

== ENCOUNTER 2020-02-26 16:43 | Emergency (ER) | payer MEDICARE, OTHER ==
[~2020-02-26] VITALS: Ht 180.3 cm; Wt 80.0 kg
[~2020-02-26 16:43] MED LIST changes: +BAYER ASPIRIN325 MG PO; +KLOR-CON 1010 MEQ PO
[2020-02-26 17:35] LABS: HEMATOCRIT 40.6 % (39.0-50.0); HEMOGLOBIN 13.7 g/dl (14.0-18.0); IMMATURE GRANULOCYTES 0.2 % (0.0-5.0); MEAN CELL VOLUME 89.8 fL CALC (80.0-100.0); MEAN CORPUSCULAR HGB 30.3 pG CALC (26.0-32.0); MEAN CORPUSCULAR HGB CONC 33.7 g/dL CAL (32.0-36.0); NEUT# 3.16 thou/uL (1.82-7.42); RED BLOOD COUNT 4.52 mill/uL (4.70-6.10); RED CELL DISTRI WIDTH 12.4 % (11.5-15.5)
[2020-02-26 17:43] LABS: PROTHROMBIN TIME 9.9 SECONDS (9.0-12.5)
[2020-02-26 17:46] LABS: ALBUMIN 3.6 g/dL (3.2-5.0); ALKALINE PHOSPHATASE 103 u/l (38-126); ANION GAP 9 (6-22 (CALC)); BILIRUBIN, TOTAL 0.4 mg/dL (0.0-1.4); BUN 10 mg/dL (8-23); BUN/CREATININE RATIO 15 (12-20 (CALC)); CARBON DIOXIDE 28 mmol/l (22-30); CHLORIDE 110 mmol/l (95-108); CREATININE 0.7 mg/dL (0.7-1.3); GFR > 60 ML/MIN (>=60 (CALC)); GFR FOR AFR.AMER. > 60 ML/MIN (>=60 (CALC)); POTASSIUM 4.2 mmol/l (3.5-5.1); SGOT/AST 21 u/l (19-48); SODIUM 143 mmol/l (137-146); TOTAL PROTEIN 6.3 g/dL (6.3-8.2)
[2020-02-26 19:47] VITALS: BP 152/69
== END 2020-02-26 19:46 | disposition short-term general hospital (02) ==
LOC: ED 16:43
DX: S82.852A Displaced trimalleolar fracture of left lower leg, initial encounter for closed fracture (principal); G30.9 Alzheimer's disease, unspecified; F02.80 Dementia in other diseases classified elsewhere, unspecified severity, without behavioral disturbance, psychotic disturbance, mood disturbance, and anxiety; W01.0XXA Fall on same level from slipping, tripping and stumbling without subsequent striking against object, initial encounter; Y92.009 Unspecified place in unspecified non-institutional (private) residence as the place of occurrence of the external cause; Z60.2 Problems related to living alone

== ENCOUNTER 2020-04-06 17:57 | Emergency (ER) | payer MEDICARE, OTHER ==
[~2020-04-06] VITALS: Ht 180.3 cm; Wt 70.0 kg
[2020-04-06 18:25] VITALS: BP 106/61
== END 2020-04-06 18:25 | disposition left against medical advice (07) ==
LOC: ED 17:57 → LWOBS 18:24 → ED 18:24 → LWOBS 18:25
DX: Z53.21 Procedure and treatment not carried out due to patient leaving prior to being seen by health care provider (principal)

== ENCOUNTER 2020-05-12 07:18 | Emergency (ER) | payer MEDICARE, OTHER ==
[~2020-05-12] VITALS: Ht 180.3 cm; Wt 81.5 kg
[2020-05-12 08:04] LABS: HEMATOCRIT 43.3 % (39.0-50.0); IMMATURE GRANULOCYTES 0.3 % (0.0-5.0); MEAN CELL VOLUME 87.8 fL CALC (80.0-100.0); MEAN CORPUSCULAR HGB 28.4 pG CALC (26.0-32.0); MEAN CORPUSCULAR HGB CONC 32.3 g/dL CAL (32.0-36.0); NEUT# 5.28 thou/uL (1.82-7.42); RED BLOOD COUNT 4.93 mill/uL (4.70-6.10); RED CELL DISTRI WIDTH 13.2 % (11.5-15.5)
--- NOTE | 2020-05-12 08:21 | NUR ---
HOLDING NEB TX PER PT HAVING CHEST TUBE INSERTED FOR TENSION PNEUMOTHORAX. AWARE.
[2020-05-12 08:37] LABS: ACT PARTIAL THROMBO TIME 26.1 SECONDS (20.0-32.5); PROTHROMBIN TIME 10.4 SECONDS (9.0-12.5)
[2020-05-12 08:43] LABS: ALBUMIN 4.1 g/dL (3.2-5.0); ALKALINE PHOSPHATASE 120 u/l (38-126); AMYLASE 44 u/l (30-110); ANION GAP 9 (6-22 (CALC)); BUN 12 mg/dL (8-23); BUN/CREATININE RATIO 16 (12-20 (CALC)); CARBON DIOXIDE 29 mmol/l (22-30); CHLORIDE 103 mmol/l (95-108); CREATININE 0.7 mg/dL (0.7-1.3); GFR > 60 ML/MIN (>=60 (CALC)); GFR FOR AFR.AMER. > 60 ML/MIN (>=60 (CALC)); LIPASE 46 u/l (23-300); POTASSIUM 3.6 mmol/l (3.5-5.1); SGOT/AST 23 u/l (19-48); SODIUM 138 mmol/l (137-146); TOTAL PROTEIN 7.3 g/dL (6.3-8.2)
[2020-05-12 08:51] LABS: BILIRUBIN, TOTAL 0.7 mg/dL (0.0-1.4)
[2020-05-12 13:17] VITALS: BP 167/77
== END 2020-05-12 13:18 | disposition short-term general hospital (02) ==
LOC: ED 07:18
PROC: 0W9930Z Drainage of Right Pleural Cavity with Drainage Device, Percutaneous Approach (ICD-10-PCS; principal; 2020-05-12)
DX: J93.0 Spontaneous tension pneumothorax (principal); G30.9 Alzheimer's disease, unspecified; F02.80 Dementia in other diseases classified elsewhere, unspecified severity, without behavioral disturbance, psychotic disturbance, mood disturbance, and anxiety; Z20.822 Contact with and (suspected) exposure to COVID-19
CPT/HCPCS: Q9967